=== PATIENT | female | born 1945 | race Two or more races ===

== ENCOUNTER 2019-05-31 18:01 | Emergency (ER) | payer OTHER ==
[~2019-05-31] VITALS: Ht 162.6 cm; Wt 77.1 kg
[2019-05-31] MEDS ORDERED: traMADol HCL 50 MG TAB PO ONE (18:45)
[2019-05-31] MEDS ORDERED: LORazepam 0.5 MG TAB PO ONE (18:45)
[2019-05-31 18:56] VITALS: BP 154/62
== END 2019-05-31 18:59 | disposition home or self-care (01) ==
LOC: EDBD 18:01 → ER 18:09
DX: F41.9 Anxiety disorder, unspecified (principal); F32.9 Major depressive disorder, single episode, unspecified; I10 Essential (primary) hypertension; Z98.51 Tubal ligation status; Z90.49 Acquired absence of other specified parts of digestive tract; Z88.0 Allergy status to penicillin
CPT/HCPCS: 93005

== ENCOUNTER 2024-07-29 22:56 | Emergency (ER) | payer OTHER ==
[~2024-07-29] VITALS: Ht 160 cm; Wt 80.0 kg
[2024-07-29] MEDS: cloNIDine HCL 0.1 MG TAB PO ONE (23:16)
[2024-07-30 00:09] LABS: Basophils # (auto) 0.1 10 ^3/uL (0-0.2); Basophils % (auto) 0.8 % (0.0-2.0); Eosinophils # (auto) 0.1 10 ^3/uL (0-0.8); Eosinophils % (auto) 1.7 % (0.0-7.0); Hematocrit 32.6 % (36.0-46.0); Hemoglobin 11.3 g/dL (12.2-16.2); Lymphocytes # (auto) 1.8 10 ^3/uL (0.4-5.4); Lymphocytes % (auto) 23.3 % (10.0-50.0); Mean Corpuscular Hemoglobin 33.7 pg (28.0-32.0); Mean Corpuscular Hgb Conc. 34.8 g/dL (32.0-36.0); Mean Corpuscular Volume 96.8 fL (80.0-100.0); Monocytes # (auto) 0.6 10 ^3/uL (0-1.3); Neutrophils # (auto) 5.2 10 ^3/uL (1.6-8.6); Neutrophils % (auto) 66.2 % (37.0-80.0); Platelet Count (auto) 239 10^3/uL (140-450); Red Blood Cells 3.37 10^6/uL (4.0-5.20); Red Cell Distribution Width 13.3 % (11.8-14.3); White Blood Cell 7.8 10^3/uL (4.4-10.8)
[2024-07-30 00:11] LABS: Chloride 110 mmol/L (98-107); Sodium 143 mmol/L (136-145)
[2024-07-30 00:12] LABS: Anion Gap 7 (5-15); Calcium 9.4 mg/dL (8.7-10.4); Carbon Dioxide 26 mmol/L (20-30)
[2024-07-30 00:17] LABS: BUN/Creatinine Ratio 14.7 (10.0-20.0); Blood Urea Nitrogen 26 mg/dL (9-23); Glucose 110 mg/dL (74-106)
[2024-07-30 01:50] VITALS: BP 174/76; PULSE 76; RESP 13; TEMP 98.1; O2SAT 96
== END 2024-07-30 02:30 | disposition home or self-care (01) ==
LOC: ER 22:56 → EDBD 22:56 → ER 07-30 02:30
DX: I16.0 Hypertensive urgency (principal); I12.9 Hypertensive chronic kidney disease with stage 1 through stage 4 chronic kidney disease, or unspecified chronic kidney disease; N18.9 Chronic kidney disease, unspecified; G43.909 Migraine, unspecified, not intractable, without status migrainosus; F41.9 Anxiety disorder, unspecified; F32.9 Major depressive disorder, single episode, unspecified; Z98.890 Other specified postprocedural states; Z88.0 Allergy status to penicillin; Z88.8 Allergy status to other drugs, medicaments and biological substances
CPT/HCPCS: 36415; 70450; 71046; 80048; 84484; 85025; 93005

== ENCOUNTER 2024-08-04 16:49 | Emergency (ER) | payer OTHER ==
[2024-08-04] MEDS: HYDROcodone-ACET 5/325MG TAB PO ONE (17:45)
[2024-08-04 20:38] VITALS: BP 174/84; PULSE 74; RESP 18; TEMP 98.1; O2SAT 98
== END 2024-08-04 20:59 | disposition home or self-care (01) ==
LOC: ER 16:49
DX: S52.302A Unspecified fracture of shaft of left radius, initial encounter for closed fracture (principal); I12.9 Hypertensive chronic kidney disease with stage 1 through stage 4 chronic kidney disease, or unspecified chronic kidney disease; N18.9 Chronic kidney disease, unspecified; Z90.49 Acquired absence of other specified parts of digestive tract; Z98.51 Tubal ligation status; Z88.0 Allergy status to penicillin; Z88.6 Allergy status to analgesic agent; W01.0XXA Fall on same level from slipping, tripping and stumbling without subsequent striking against object, initial encounter; Y93.89 Activity, other specified; Y92.89 Other specified places as the place of occurrence of the external cause; Y99.8 Other external cause status
CPT/HCPCS: 29125; 73090; 73130; 73501

== ENCOUNTER 2025-05-27 14:20 | Emergency (ER) | payer OTHER ==
[~2025-05-27] VITALS: Ht 162.6 cm; Wt 63.6 kg
[2025-05-27 15:07] LABS: Hematocrit 27.4 % (36.0-46.0); Hemoglobin 9.1 g/dL (12.2-16.2); Mean Corpuscular Hemoglobin 31.1 pg (28.0-32.0); Mean Corpuscular Volume 93.9 fL (80.0-100.0)
--- NOTE | 2025-05-27 15:07 | ED.PDOC ---
History of Present Illness HPI Comments Patient is a 79-year-old female with a past medical history of spinal cancer status post radiation therapy, CKD, fibromyalgia, reportedly having blood clot in her left arm for which she is on Eliquis was brought in by ambulance to the ED with a chief complaint of severe body aches. Patient reported that since the last 1 week she has been having worsening pain in her lower extremities, penis burning, constant with intermittent episodes of breakthrough pain which was not relieved by her home pain medications including opiates. She also reported of not been able to sleep because of the pain for the last few days. Patient denied any fever, chills, abdominal pain, diarrhea, dysuria, cough or phlegm. Patient denied chest pain. No history of fall was reported by the family. As reported by the patient, she is nonambulatory for a while. Patient called her PCP who recommended to call the EMS and go to the emergency. As reported by the EMS patient was found to be saturating around 88% on room air following which she was put on oxygen via nasal cannula at 2 L and her saturation improved to 96%. Chief Complaint: Body Pain Time Seen by MD: 14:42 Primary Care Provider: Daniel Reviewed Notes: Nurses Notes, Stationary Engineer Supervisor Notes, Medications, Allergies Allergies: Coded Allergies: Benzocaine (Verified Allergy, Mild, 05/03/11) Lisinopril (Verified Allergy, Mild, 05/03/11) Penicillins (Verified Allergy, Mild, 05/03/11) Information Source: Patient Mode of Arrival: EMS Severity: Mild, Moderate Timing: Days Duration: Intermittent Prehospital treatment: Oxygen Location: Generalized body ache, more in the legs Quality Burning, pins and needle sensation Past Medical History PAST MEDICAL HISTORY: Anxiety, CKF, Depression, HTN Past Medical History (Other): Fibromyalgia, DVT (right upper extremity as reported with the patient) Surgical History: BTL, Cholecystectomy DIRECTOR PRIVATE History: Denies all DIRECTOR PRIVATE Hx Family History Family History: Unknown Social History Smoker: Non-Smoker Alcohol: Denies ETOH Use Drugs: Denies Drug Use Lives In: Home Constitutional: reports: fatigue, malaise, weakness EENTM: denies: blurred vision, double vision, ear bleeding, ear discharge, ear drainage, ear pain, ear ringing, eye pain, eye redness, hearing loss, mouth pain, mouth swelling, nasal discharge, nose bleeding, nose congestion, nose pain, photophobia, tearing, throat pain, throat swelling, voice changes, others Respiratory: reports: shortness of breath Cardiovascular: denies: chest pain, dizzy spells, diaphoresis, Dyspnea on exertion, edema, irregular heart beat, left arm pain, lightheadedness, palp itations, PND, syncope, others Gastrointestinal: denies: abdomen distended, abdominal pain, blood streaked bowels, constipated, diarrhea, dysphagia, difficulty swallowing, hematemesis, melena, nausea, poor appetite, poor fluid intake, rectal bleeding, rectal pain, vomiting, others Genitourinary: denies: abnormal vagina bleeding, burning, dyspareunia, dysuria, flank pain, frequency, hematuria, incontinence, pain, , vagina discharge, urgency, others Neurological: reports: paresthesia, tingling, weakness Musculoskeletal: denies: back pain, gout, joint pain, joint swelling, muscle pain, muscle stiffness, neck pain, others Integumetry: denies: bruises, change in color, change in hair/nails, dryness, laceration, lesions, lumps, rash, wounds, others Allergic/Immunocompromised: denies: Difficulty Healing, Frequent Infections, Hives, Itching, others Hematologic/Lymphatic: denies: anemia, blood clots, easy bleeding, easy bruising, swollen glands, others Endocrine: denies: excessive hunger, excessive sweating, excessive thirst, excessive urination, flushing, intolerance to cold, intolerance to heat, unexplained weight gain, unexplained weight loss, others Psychiatric: denies: anxiety, bipolar disorder, depression, hopeless, panic disorder, schizophrenia, sleepless, suicidal, others Physical Exam General Appearance: Mild Distress HEENT: Normal ENT Inspection, Pharynx Normal, TMs Normal Neck: Full Range of Motion, Non-Tender, Normal, Normal Inspection Respiratory: Chest Non-Tender, Lungs Clear, No Accessory Muscle Use, No Respiratory Distress, Normal Breath Sounds Cardiovascular: No Edema, No JVD, No Murmur, No Gallop, Normal Peripheral Pulses, Regular Rate/Rhythm Breast Exam: Deferred Gastrointestinal: No Organomegaly, Non Tender, No Pulsatile Mass, Normal Bowel Sounds, Soft Genitalia: Deferred Pelvic: Deferred Rectal: Deferred Extremities: No calf tenderness, Normal capillary refill, Normal inspection, Normal range of motion, Non-tender, No pedal edema Neurologic: Alert, Motor Weakness (Bilateral lower extremity strength 1/5), No Sensory Deficits Cerebellar Function: Normal Reflexes: Normal Skin: Dry, Normal Color, Warm Peripheral Pulses: 2+ carotid (R), 2+ carotid (L), 2+ femoral (R), 2+ femoral (L), 2+ dorsalis pedis (R), 2+ dorsalis pedis (L), 2+ Radial (R), 2+ Radial (L) Lymphatic: No Adenopathy Was a procedure done? Was a procedure done?: No EKG EKG : Pulse Rate (adult): 96 [place]: Normal Cardiac Rhythm: NSR Block: None Hypertrophy: None ST: Normal Differential Dx Considerations may include: Polyneuropathy, acute hypoxic respiratory failure, possible pneumonia/pneumonitis, fibromyalgia flare-up X-Ray, Labs, Meds, VS Vital Signs Date Time Temp Pulse Resp B/P (MAP) Pulse Ox O2 Delivery O2 Flow Rate FiO2 05/27/25 21:04 105 20 150/97 (114) 99 05/27/25 16:15 96 16 145/59 (87) 94 05/27/25 15:21 96 05/27/25 15:20 70 05/27/25 14:33 98.3 98 10 132/60 (84) 97 98.3 05/27/25 14:29 96 Lab Test 05/27/25 20:48 05/27/25 14:54 Range/Units Lactic Acid Level 1.2 0.4-2.0 mmol/L Ammonia 30 11-32 umol/L White Blood Count 15.0 H 4.4-10.8 10^3/uL Red Blood Count 2.92 L 4.0-5.20 10^6/uL Hemoglobin 9.1 L 12.2-16.2 g/dL Hematocrit 27.4 L 36.0-46.0 % Mean Corpuscular Volume 93.9 80.0-100.0 fL Mean Corpuscular Hemoglobin 31.1 28.0-32.0 pg Mean Corpuscular Hemoglobin Concent 33.1 32.0-36.0 g/dL Red Cell Distribution Width 16.1 H 11.8-14.3 % Platelet Count 550 H 140-450 10^3/uL Mean Platelet Volume 7.4 6.9-10.8 fL Neutrophils (%) (Auto) 37.0-80.0 % Lymphocytes (%) (Auto) 10.0-50.0 % Monocytes (%) (Auto) 0.0-12.0 % Basophils (%) (Auto) 0.0-2.0 % Neutrophils # (Auto) 1.6-8.6 10 ^3/uL Lymphocytes # (Auto) 0.4-5.4 10 ^3/uL Monocytes # (Auto) 0-1.3 10 ^3/uL Differential Total Cells Counted 100.0 100 Neutrophils % (Manual) 76 37.0-80.0 Band Neutrophils % (Manual) 2 Lymphocytes % (Manual) 9 L 10.0-50.0 Monocytes % (Manual) 11 0-12 Eosinophils % (Manual) 1 0-7 Basophils % (Manual) 0 0.0-2.0 Metamyelocytes % (manual) 0 Myelocytes % (Manual) 1 Promyelocytes % (Manual) 0 Blast Cells % (Manual) 0 Reactive Lymphocytes 0 Platelet Estimate Increased Anisocytosis (manual) Slight Stomatocytes Few Sodium Level 143 136-145 mmol/L Potassium Level 3.0 L 3.5-5.1 mmol/L Chloride Level 101 98-107 mmol/L Carbon Dioxide Level 29 20-31 mmol/L Anion Gap 13 5-15 Blood Urea Nitrogen 26 H 9-23 mg/dL Creatinine 1.20 H 0.550-1.02 mg/dL Glomerular Filtration Rate Calc 47 >90 mL/min BUN/Creatinine Ratio 21.7 H 10.0-20.0 Serum Glucose 89 74-106 mg/dL Calcium Level 8.4 L 8.7-10.4 mg/dL Magnesium Level 1.4 L 1.6-2.6 mg/dL Current Medications Medications (Trade) Dose Ordered Sig/Carmencita Route Start Time Stop Time Status Last Admin Oxycodone/ Acetaminophen (Percocet 5/ 325MG Tablet) 2 tab ONCE ONCE PO 05/27/25 21:00 05/27/25 21:01 DC 05/27/25 21:26 Patient came in complaining of generalized body ache, worsening bilateral lower extremity pain, found to be saturating 87-88% by the EMS and was put on oxygen at 3 L via nasal cannula with saturation improved to 96%. Chest x-ray was done which showed multifocal consolidation in the left lung with the elevated white count, BMP showed hypokalemia and hypomagnesemia following which 1 L of IV NS, 2 g of IV magnesium, 50 mEq of p.o. potassium and antibiotics including 1 g of ceftriaxone 100 mg of doxycycline IV were ordered. Lactic acid was within normal limits. As patient was stable for transfer, [facility] were contacted and the patient was accepted for transfer with the . Time of 1ST Reevaluation: 17:15 Reevaluation 1ST: Unchanged Time of 2ND Reevaluation: 19:14 Reevaluation 2ND: Unchanged Patient Education/Counseling: Diagnosis, Treatment Family Education/Counseling: Diagnosis, Treatment, Prognosis SEPSIS Sepsis Screen Date sepsis recognized/suspect: May 27, 2025 Time Sepsis recognized/suspect: 1432 Recent Procedure: No On Antibiotic Therapy: No Respiratory Rate >20: No Heart Rate >90: No Temp<36 C (96.8 F) or >38.3 C: No SBP <90 or MAP <65 mmHG: No New Acute Mental Status Change: No Is the patient on CPAP, BIPAP,: No Physician Orders Chest Xray 1 View (05/27/25 14:42) Rapid Influenza A&B (05/27/25 14:42) Covid19 Antigen Daysi (05/27/25 ) Urinalysis (05/27/25 14:42) Ceftriaxone 1gm/50ml D5w (Rocephin) (05/27/25 16:45) Respiratory Culture W/ Gs (05/27/25 16:34) Vital Signs Date Time Temp Pulse Resp B/P (MAP) Pulse Ox O2 Delivery O2 Flow Rate FiO2 05/27/25 21:04 105 20 150/97 (114) 99 05/27/25 16:15 96 16 145/59 (87) 94 05/27/25 15:21 96 05/27/25 15:20 70 05/27/25 14:33 98.3 98 10 132/60 (84) 97 98.3 05/27/25 14:29 96 Laboratory Tests Test 05/27/25 14:54 05/27/25 20:48 White Blood Count 15.0 10^3/uL (4.4-10.8) H Lactic Acid Level 1.2 mmol/L (0.4-2.0) Medications Medications Dose Ordered Sig/Carmencita Route Start Time Stop Time Status Last Admin Dose Admin Oxycodone/ Acetaminophen 2 tab ONCE ONCE PO 05/27/25 21:00 05/27/25 21:01 DC 05/27/25 21:26 Departure 1 Departure Time of Disposition: 21:50 Impression: Primary Impression: Pneumonia Additional Impressions: Polyneuropathy History of cancer of spinal cord Fibromyalgia Anxiety Acute hypoxic respiratory failure Disposition: 51 HOSPICE/MEDICAL FACILITY Condition: Stable Critical Care Note Critical Care Time?: No Stability Stability form required: Yes Initial call: 20:23 Stable for transfer: To designated facility Comments Patient was stable to transfer to [facility]. Talked to with , patient accepted for tele bed. Heart Score Heart Score: Heart Score Response (Comments) Value History N/A 0 EKG N/A 0 Age N/A 0 Risk Factors >3 or Hx ASHD 2 Troponin N/A 0 Total 2 BROOKE MISHRA RESIDENT May 27, 2025 15:07
[2025-05-27 15:15] LABS: Chloride 101 mmol/L (98-107); Sodium 143 mmol/L (136-145)
[2025-05-27 15:16] LABS: Anion Gap 13 (5-15); Carbon Dioxide 29 mmol/L (20-31)
--- NOTE | 2025-05-27 15:19 | DVH ---
EXAM: XY CHEST XRAY 1 VIEW Indication: SOB Technique: Single frontal view of the chest was obtained Comparison: None FINDINGS: Lines and Tubes: None Lungs: Multifocal consolidative opacities. Pleura: Small left pleural effusion No pneumothorax. Cardiomediastinal contours: Unremarkable Bones: No acute osseous abnormality. IMPRESSION: Multifocal consolidative opacities. Small left pleural effusion. Recommend repeat imaging after the completion of treatment to ensure resolution.
[2025-05-27 15:21] LABS: BUN/Creatinine Ratio 21.7 (10.0-20.0); Glucose 89 mg/dL (74-106)
[2025-05-27 15:26] LABS: Blood Urea Nitrogen 26 mg/dL (9-23); Calcium 8.4 mg/dL (8.7-10.4); Potassium 3.0 mmol/L (3.5-5.1)
[2025-05-27 16:08] LABS: Total Cells Counted 100.0 (100)
[2025-05-27 16:09] LABS: Anisocytosis Slight; Stomatocytes Few
[2025-05-27] MEDS: MORPHINE SULFATE INJ 2 MG/ml SYRG IV ONE (16:15)
--- NOTE | 2025-05-27 17:59 | ECG ---
[facility] Test Date: 2025-05-27 Test Time: 14:29:19 Pat Name: KENNEDY RAMIREZ Department: ED Room: Gender: F Packaging Machine Operator: adriana : 1945 Requested By: EMERGENCY EMERGENCY Order Number: [id number] Reading MD: Measurements Intervals [place] Rate: 96 P: 56 DC: 135 QRS: 59 QRSD: 94 T: 43 QT: 372 QTc: 471 Interpretive Statements Sinus rhythm Please click the below link to view image of tracing.
[2025-05-27] MEDS: OXYCODONE W/ ACETAMINOPHEN 5/325MG TABLET PO ONE (21:26)
[2025-05-27] MEDS: cefTRIAXone 1GM/50ML D5W 50 ML IV ONE (23:03)
[2025-05-27] MEDS: SODIUM CHLORIDE 0.9% 1,000 ML IV ONE (23:04)
[2025-05-27] MEDS: POTASSIUM EFFERVESENT TAB 25 MEQ PO ONE (23:04)
[2025-05-27 23:30] VITALS: PULSE 83; RESP 14; O2SAT 94
[2025-05-28] MEDS: DOXYCYCLINE 100MG/100ML 100 ML IV ONE (02:00)
[2025-05-28 02:03] LABS: COVID19 ANTIGEN SOFIA FIA NEGATIVE (NEGATIVE)
[2025-05-28 02:30] VITALS: BP 132/55; PULSE 89; RESP 12; TEMP 97.8; O2SAT 94
[2025-05-28] MEDS: MAGNESIUM SULFATE 1GM/100ML 100 ML IV SCH (05:10)
== END 2025-05-28 03:00 | disposition short-term general hospital (02) ==
LOC: ER 14:20 → EDBD 14:20 → ER 05-28 03:00
DX: J18.9 Pneumonia, unspecified organism (principal); G62.9 Polyneuropathy, unspecified; M79.7 Fibromyalgia; F41.9 Anxiety disorder, unspecified; J96.01 Acute respiratory failure with hypoxia; J90 Pleural effusion, not elsewhere classified; I12.9 Hypertensive chronic kidney disease with stage 1 through stage 4 chronic kidney disease, or unspecified chronic kidney disease; N18.9 Chronic kidney disease, unspecified; Z90.49 Acquired absence of other specified parts of digestive tract; Z92.3 Personal history of irradiation; Z98.51 Tubal ligation status; Z88.0 Allergy status to penicillin; Z88.8 Allergy status to other drugs, medicaments and biological substances
CPT/HCPCS: 36415; 71045; 80048; 82140; 83605; 83735; 85007; 85027; 87426; 93005; 96365; 96366; 96367; 99285; J0696; J2270; J3490; J7030